=== PATIENT | female | born 1965 | race Caucasian/White ===

== ENCOUNTER 2022-03-04 13:11 | Emergency (ER) | payer BC | END 2022-03-04 15:40 | disposition home or self-care (01) | LOC: CSHERS 13:11 | DX: S52.102A Unspecified fracture of upper end of left radius, initial encounter for closed fracture (principal); X58.XXXA Exposure to other specified factors, initial encounter ==

== ENCOUNTER 2022-07-27 16:31 | Emergency (ER) | payer BC ==
[2022-07-27] MEDS ORDERED: Ketorolac Tromethamine 30 MG/ML VIAL ONE (17:04)
[2022-07-27] MEDS ORDERED: Dexamethasone 10 MG/ML VIAL ONE (17:04)
== END 2022-07-27 17:16 | disposition home or self-care (01) ==
LOC: CSHERS 16:31
DX: B02.9 Zoster without complications (principal)
CPT/HCPCS: 96372; 99282; J1100; J1885

== ENCOUNTER 2023-05-26 20:14 | Emergency (ER) | payer SELFPAY, OTHER ==
[2023-05-26 21:30] LABS: SARS-CoV-2 NAA Rapid Test Not Detected (NotDetected)
[2023-05-26] MEDS ORDERED: Ondansetron ODT 4 MG TAB ONE (21:53)
[2023-05-26 23:34] LABS: #Monocytes 0.5 10x3/uL (0.0-1.1); #Neutrophils 1.7 10x3/uL (1.5-8.4); %Basophils 0.3 % (0.0-2.0); %Eosinophils 0.6 % (0.0-6.0); %Lymphocytes 33.9 % (18.0-47.0); %Monocytes 14.2 % (0.0-10.0); %Neutrophils 50.4 % (40.0-75.0); Hematocrit 41.9 % (34.9-44.5); Mean Corpuscular HGB CONC 33.4 g/dL (32.0-36.0); Mean Corpuscular Hemoglobin 30.2 pg (27.0-33.0); Mean Corpuscular Volume 90.5 fl (81.6-98.3); Mean Platelet Volume 11.4 fl (7.4-10.4); Platelet Count 133 10x3/uL (150-450); RBC Distribution Width 12.3 % (11.5-14.5); Red Blood Cell (RBC) Count 4.63 10x6/uL (3.90-5.03); White Blood Cell (WBC) Count 3.5 10x3/uL (3.5-10.5)
[2023-05-26 23:41] LABS: ALT (SGPT) 31 U/L (8-55); AST (SGOT) 25 U/L (5-34); Albumin 4.1 g/dL (3.5-5.0); Alkaline Phosphatase 53 U/L (40-110); Anion Gap 13 mmol/L (10-20); BUN (Urea Nitrogen) 14 mg/dL (9.8-20.1); Bilirubin, Total 0.7 mg/dL (0.2-1.2); Calc. Creatinine Clearance 0 mL/min (70-130); Calcium 8.8 mg/dL (7.8-10.44); Carbon Dioxide 22 mmol/L (22-29); Chloride 106 mmol/L (98-107); Estimated GFR 93; Glucose 93 mg/dL (70-105); Lipase 18 U/L (8-78); Magnesium 2.3 mg/dL (1.6-2.6); Potassium 3.6 mmol/L (3.5-5.1); Protein, Total 7.1 g/dL (6.0-8.3); Sodium 137 mmol/L (136-145)
== END 2023-05-27 00:59 | disposition home or self-care (01) ==
LOC: CSHERS 20:14
DX: A08.4 Viral intestinal infection, unspecified (principal); Z20.822 Contact with and (suspected) exposure to COVID-19
CPT/HCPCS: 80053; 83690; 83735; 85025; 99284; Q0162

== ENCOUNTER 2024-06-12 16:35 | Emergency (ER) | payer BC, OTHER, SELFPAY ==
[2024-06-12] MEDS ORDERED: traMADol HCl 50 MG TAB ONE (16:59)
[2024-06-12] MEDS ORDERED: Ketorolac Tromethamine 30 MG (1 mL) VIAL ONE (18:31)
== END 2024-06-12 18:50 | disposition home or self-care (01) ==
LOC: CSHERS 16:35
DX: S82.434A Nondisplaced oblique fracture of shaft of right fibula, initial encounter for closed fracture (principal); S82.891A Other fracture of right lower leg, initial encounter for closed fracture; I10 Essential (primary) hypertension; X50.0XXA Overexertion from strenuous movement or load, initial encounter
CPT/HCPCS: 29515; 96372; J1885

== ENCOUNTER 2025-09-08 15:11 | Emergency (ER) | payer BC ==
[2025-09-08] MEDS ORDERED: Ketorolac Tromethamine 30 MG (1 mL) VIAL ONE (18:10)
[2025-09-08] MEDS ORDERED: Methocarbamol 500 MG TAB ONE (18:10)
== END 2025-09-08 18:05 | disposition home or self-care (01) ==
LOC: CSHERS 15:11
DX: S86.111A Strain of other muscle(s) and tendon(s) of posterior muscle group at lower leg level, right leg, initial encounter (principal); Z86.718 Personal history of other venous thrombosis and embolism; Z79.01 Long term (current) use of anticoagulants; X58.XXXA Exposure to other specified factors, initial encounter
CPT/HCPCS: 96372; J1885